=== PATIENT | female | born 1950 | race Caucasian/White ===

== ENCOUNTER 2018-01-26 10:20 | Day surgery (SDC) | payer MEDICARE, BC ==
[~2018-01-26 10:20] MED LIST: EPHEDrine SULFATE 50 MG/5 ML SYG
[2018-01-26] MEDS ORDERED: PROPOFOL 40 ML (11:58)
[2018-01-26] MEDS ORDERED: METOCLOPRAMIDE 10 MG INJ IV (12:00)
[2018-01-26] MEDS ORDERED: EPHEDrine SULFATE 50 MG/5 ML SYG IV (12:00)
[2018-01-26] MEDS ORDERED: LABETALOL HCL 20MG INJ IV (12:00)
[2018-01-26] MEDS ORDERED: MEPERIDINE 25 MG INJ IV (12:00)
[2018-01-26] MEDS ORDERED: DIPHENHYDRAMINE 50 MG INJ IV (12:00)
[2018-01-26] MEDS ORDERED: ONDANSETRON 4 MG INJ IV (12:00)
[2018-01-26] MEDS ORDERED: HYDROmorphONE 1 MG/5 ML IV SYRINGE IV ×2 (12:00)
[2018-01-26] MEDS ORDERED: ROPIVACAINE 0.5 % 30 ML VIAL ×2 (12:00→12:39)
[2018-01-26] MEDS ORDERED: OXYCODONE/ACETAMINOPHEN (5/325) TAB PO (12:00)
[2018-01-26] MEDS ORDERED: FENTAnyl 50 MCG/ML VIAL IV ×2 (12:00)
[2018-01-26] MEDS ORDERED: MIDAZOLAM 1 MG/ML 2 ML INJ (12:40)
[2018-01-26] MEDS ORDERED: FENTAnyl 50 MCG/ML VIAL (13:07)
[2018-01-26] MEDS ORDERED: morphine 2 MG INJ IV (13:30)
[2018-01-26] MEDS ORDERED: METOCLOPRAMIDE 10 MG INJ (13:59)
[2018-01-26] MEDS ORDERED: DEXAMETHASONE 4 MG/ML 1 ML INJ (13:59)
[2018-01-26] MEDS ORDERED: ONDANSETRON 4 MG INJ (13:59)
[2018-01-26] MEDS ORDERED: KETOROLAC 30 MG INJ (13:59)
[2018-01-26] MEDS ORDERED: CEFAZOLIN 1 GM INJ (13:59)
[2018-01-26] MEDS ORDERED: PROPOFOL 20 ML ×2 (14:02)
[2018-01-26] MEDS: POLYMYXIN/BACITRACIN 1L IRRIG (14:11)
[2018-01-26] MEDS: BACITRACIN/POLYMYXIN 28.35 GM OINT TOP (15:25)
== END 2018-01-26 16:22 | disposition home or self-care (01) ==
LOC: SDS 10:20
DX: T84.84XA Pain due to internal orthopedic prosthetic devices, implants and grafts, initial encounter (principal); M21.171 Varus deformity, not elsewhere classified, right ankle; M19.071 Primary osteoarthritis, right ankle and foot; Y83.8 Other surgical procedures as the cause of abnormal reaction of the patient, or of later complication, without mention of misadventure at the time of the procedure
CPT/HCPCS: 20680; 73630; 82306; 88300